=== PATIENT | male | born 1985 | race Caucasian/White ===

== ENCOUNTER 2020-01-21 12:17 | Emergency (ER) | payer OTHER, SELFPAY ==
[2020-01-21 11:11] VITALS: BMI 31.2
[2020-01-21 12:18] VITALS: BP 145/94; PULSE 106; RESP 16; TEMP 36.9; O2SAT 98; BMI 31.7
--- NOTE | 2020-01-21 12:36 | CT_ITS ---
STUDY: CT SOFT TISSUE NECK WITHOUT CONTRAST REASON FOR EXAM: Male, 34 years old. LEFT PERITONSILLAR ABSCESS RADIATION DOSAGE (If Supplied By Facility): CTDIvol = ( 15.69 ) mGy, DLP = ( 368.19 ) mGycm TECHNIQUE: The patient was scanned in a multi-detector CT scanner. High resolution transaxial imaging was performed without the administration of intravenous contrast material. Sagittal and coronal images were reconstructed. Individualized dose optimization techniques were used for this CT. COMPARISON: None. FINDINGS: Evaluation of the soft tissues of the neck is extremely limited without IV contrast was not given. Nevertheless it is clear that there is thickening of the bilateral oropharyngeal martinez respectively. There is narrowing of the aerodigestive tract injury to the right. There is heterogeneous density of the left tonsil and although there is no specific focal fluid collection to suggest abscess, phlegmon is probable. Again note that abscess wall is difficult to confirm exclude without IV contrast was not given. Left-sided pharyngeal wall thickening extends down to the level of the left piriform sinuses. No thickening of the epiglottis. Grossly normal base of the skull, orbits and sinuses. Grossly normal nasopharynx. Mild bilateral cervical adenopathy worse on the left. No prevertebral soft tissue thickening. CT/Soft Tissue Neck without Contr IMPRESSION: Very limited by the absence of IV contrast. No definite abscess although sensitivity for abscess as well as decreased without IV contrast. Bilateral enlarged pharyngeal tonsils. Possible left pharyngeal tonsil phlegmon. Electronically Signed: Trev Brasher MD at 13:55 EDT , Service support ,
--- NOTE | 2020-01-21 12:37 | ED.DCSUM_ITS ---
History of Present Illness Chief Complaint: Sore Throat Informant: Patient Onset: Days Maximum Severity: Mild Narrative: Patient complains of pain related to tonsillitis for the last 3 days he indicates he has more pain to the left side, he has had a peritonsillar abscess in the past a few years ago he was admitted on IV fluids antibiotics improved did not need follow-up with ENT. He basically reports he began having sore throat a few days ago the symptoms intensified he was concerned he may have a peritonsillar abscess and he came in for evaluation. He is able to swallow and breathe he has no stridor or drooling. He denies any other past history he does not know why he gets recurrent peritonsillar abscesses. He has no other past history no medications Past Medical History - Allergies and Home Meds Allergies/Adverse Reactions: Allergies grass pollen Allergy (Mild, Verified 01/21/20 12:21) unknown latex Allergy (Mild, Verified 01/21/20 12:21) unknown weed pollen Allergy (Mild, Verified 01/21/20 12:21) unknown mildew Allergy (Mild, Uncoded 01/21/20 12:21) unknown mud Allergy (Mild, Uncoded 01/21/20 12:21) unknown Primary Care Physician: Alverto Hatfield MD [STAFF PHYSICIAN] - Dwayne Morrell DO [Primary Care Provider] - Past Medical History: - - Prior peritonsillar abscess Smoking Status: Never smoker Review of Systems General: Denies: Chills, Fever, Sweats Eyes: Denies: Visual changes - bilaterally, Diplopia ENT: Reports: Sore throat. Denies: Rhinorrhea Cardiovascular: Denies: Chest pain, Palpitations Respiratory: Denies: Dyspnea, Cough, Dyspnea on exertion Gastrointestinal: Denies: Abdominal pain, Nausea, Vomiting, Diarrhea, Melena, Hematochezia Genitourinary: Denies: Dysuria, Hematuria, Frequency Musculoskeletal: Denies: Back pain, Extremity Pain Skin: Denies: Rash, Wounds Neurological: Denies: Headache, Weakness, Numbness Physical Exam Vital Signs/Narrative: Vital Signs Temp Pulse Resp BP Pulse Ox 01/21/20 12:18 98.5 F 106 H 16 145/94 H 98 General: Well nourished, Well developed, No Acute Distress Head: Normocephalic, Atraumatic Eyes: Perrl, EOMI ENT: Moist mucous membranes, No rhinorrhea, - - His airways intact he speaking full sentences, he has a left peritonsillar abscess the uvula is pushed slightly to the right the airway again is intact there is no stridor or drooling tongue movements normal for the mouth normal the neck shows some adenopathy to the left full range of motion supple no meningismus speaking full sentences Neck: Supple, Nontender Cardiovascular: Regular rate, Regular rhythm, No murmurs Respiratory: No distress, CTA bilaterally, Chest nontender Abdomen: Soft, Nontender, Nondistended, Normal bowel sounds Back: Nontender, Normal Inspection Extremities: Nontender, No edema Skin: Normal color, No rash Neurological: Alert, Oriented x3, Cranial nerves II-XII grossly intact, Normal Strength, Normal Sensation Psychological: Normal affect, Normal Mood Diagnostic/Tx/Re-eval - Medical Decision Making Discussed the above with the patient discussed the concept of peritonsillar abscess the differential the concept of serious complications airway compromise 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 indicates however he does not wish to be admitted to the hospital for a variety of reasons he would not wish to disclose he feels he will be fine with oral antibiotics and feels that he will return if symptoms change or intensify and he will see ENT as an outpatient We will obtain IV fluids antibiotics screening labs CT Patient screening labs are unremarkable, the CT shows a likely left peritonsillar abscess no airway compromise Reevaluation the patient says he feels much better he was able to take the Augmentin tablet without difficulty I did again recommend admission we discussed the serious complications such as airway compromise and sudden extension of the infection and sepsis and , he indicates he understood that 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 he simply does not wish to be admitted and prefers outpatient management he currently has capacity to make this decision He does agree to follow-up with ENT in a day or 2, to return if symptoms change or intensify, he will be started on Augmentin Naprosyn [place] for pain Home stable declined admission Impression final left peritonsillar abscess ED Disposition - Plan for ED Patient: Diagnosis: Acute tonsillitis, unspecified, Left peritonsillar abscess Instructions: ED Peritonsillar Abscess Prescriptions: Amox/Clavulanate Tablet [Augmentin Tablet] 875 mg PO Q12H #20 tab Prescription Printed Amox/Clavulanate Tablet [Augmentin Tablet] 875 mg PO Q12H #20 tab Naproxen [Naprosyn] 500 mg PO BID PRN #20 tab Prescription Printed Hydrocodone Bitart/Apap 5-325 [[place] 5MG-325MG] 1 tab PO Q4H PRN PRN 2 Days #10 tab PRN Reason: Pain Prescription Printed Referrals: Dwayne Morrell DO [Primary Care Provider] - Alverto Hatfield MD [STAFF PHYSICIAN] -
[2020-01-21 12:57] LABS: Absolute Lymphocyte Count 2.52 X10^3/uL (0.83-4.51); Absolute Neutrophil Count 8.8 X10^3/uL (2.0-7.7); Basophil# 0.04 X10^3/uL; Basophil% 0.3 % (0-1); Eosinophils% 0.8 % (0-5); Hematocrit 43.7 % (40-54); Hemoglobin 15.3 g/dL (13.0-16.5); Lymphocyte # 2.52 X10^3/ul (4.0); Lymphocyte % 20.4 % (19-41); Mean Corpuscular Volume 88.6 fL (80-94); Mean Platelet Vol. 9.5 fl (6.2-12.0); Monocyte# 0.85 X10^3/uL; Monocyte% 6.9 % (0-10); NRBC Flagged by Analyzer 0 % (0-5); Neutrophil # 8.77 X10^3/uL (2.7-7.7); Platelet Count 271 K/mm3 (150-450); RBC Distribution Width SD 38.5 fl (35.1-43.9); Red Blood Count 4.93 M/mm3 (4.6-6.2); White Blood Count 12.4 K/mm3 (4.4-11.0)
[2020-01-21] MEDS: Ketorolac 30 MG/ML Syringe IV (13:07)
[2020-01-21] MEDS: morphine 8 MG/ML Syringe IV (13:07)
[2020-01-21] MEDS: 0.9% Normal Saline 1,000 ML 999 ML IV (13:07)
[2020-01-21] MEDS: Ondansetron 4 MG/2 ML Vial IV (13:07)
[2020-01-21 13:10] LABS: Anion Gap 5 (5-15); BUN 12 mg/dL (7-18); BUN/Creat Ratio 14.6 RATIO (10-20); Calcium,Total 9.3 mg/dL (8.5-10.1); Chloride 102 mmol/L (98-107); Creatinine, Serum 0.82 mg/dL (0.70-1.30); EST Glomerular Filtration Rate 115 mL/min (>60); Est Glom Filt Rate - Afr Amer 139 mL/min (>60); Estimated Creatinine Clearance 129.33 ml/min; Glucose 102 mg/dL (74-106); Sodium Level 135 mmol/L (136-145)
[2020-01-21] MEDS: Amox/Clavulanate 875 MG Tablet PO (13:13)
[2020-01-21 15:55] VITALS: RESP 18; TEMP 37.1
== END 2020-01-21 15:58 | disposition home or self-care (01) ==
LOC: ED 12:55
PROVIDERS: Emergency Provider Emergency Medicine; PCP Family Medicine
DX: J36 Peritonsillar abscess (principal)
CPT/HCPCS: 70490; 80048; 85025; 87077; 87880; 96361; 96365; 96367; 96375; 99284; J2405

== ENCOUNTER → 2020-04-11 17:14 | Outpatient (CLI) | payer OTHER, SELFPAY | PROVIDERS: PCP Family Medicine; Visit Provider Otolaryngology | DX: Z11.59 Encounter for screening for other viral diseases (principal) | CPT/HCPCS: 87635; G2023; U0003 ==

== ENCOUNTER → 2020-04-15 15:18 | Outpatient (CLI) | payer OTHER, SELFPAY ==
--- NOTE | 2020-04-15 13:15 | TONS_PTH ---
PATIENT: LLOYD TALBERT LOC: [facility] U#:[id number] AGE/SX: 40/M ROOM: RE04/15/[address]: Dr. Ravindre Hatfield MD : 1985 BED: DIS: SPEC #: [id number] RECD: 04/15/20 14:54 STATUS: FREDI ROSY #: [id number] MARTINA: 04/15/20 13:[address]: Ravinder Hatfield DEPT: SURGICAL PATHOLOGY RECD BY: Roselyn An ENTERED: 04/16/20 14:10 SP TYPE: TONSILS OTHR DR: Dr. Dwayne Morrell, [facility] Tissues: Tonsil, NOS Procedures: Surgery Specimen Level III HEADER OPERATION: Tonsillectomy PRE-OP DIAGNOSIS: Peritonsillar abscess, acute tonsillitis TISSUE SUBMITTED: Tonsils (right pinned) MICROSCOPIC DIAGNOSIS Right and left tonsils, bilateral tonsillectomies: Benign lymphoid follicular hyperplasia. AM:atul 04/17/20 MICROSCOPIC DESCRIPTION Slides are reviewed. GROSS DESCRIPTION Received is one container labeled with the patient's name and designated tonsils - pin on right are two tonsils that in aggregate weigh 21.6 gm. The right tonsil has a pin on it and measures 4 x 2.2 x 1.6 cm. The left tonsil measures 4 x 3 x 2.2 cm. Both tonsils are similar in appearance. The external surfaces are pink-gutierrez, smooth, glistening and somewhat lobulated. Focally they are hemorrhagic, granular and bear cautery artifact. Serial cross sections through the tonsils reveal normal tonsillar architecture. Sections are submitted in two cassettes as follows: 1 - right tonsil, 2 - left tonsil. / AM:atul 04/16/20 TC:5 [facility]: [id number] x2
== END ==
PROVIDERS: PCP Family Medicine; Referring Provider Otolaryngology; Visit Provider Otolaryngology
DX: J03.90 Acute tonsillitis, unspecified (principal)
CPT/HCPCS: 88304